=== PATIENT | female | born 1995 | race African-American/Black ===

== ENCOUNTER 2019-02-13 10:10 | Emergency (ER) | payer OTHER ==
[~2019-02-13] VITALS: Ht 165.1 cm; Wt 76.7 kg
[2019-02-13] MEDS ORDERED: LIDOCAINE VISCOUS 2% SOLN 15ML UDC SS ONE ×2 (10:45→11:30)
[2019-02-13] MEDS ORDERED: ONDANSETRON 4 MG ORAL DISINTEGRATING TAB (Q0162 PER 1MG) PO ONE (10:45)
[2019-02-13] MEDS ORDERED: ONDA4TAB6 PO (11:28)
[2019-02-13] MEDS ORDERED: LIDO1SOL8 PO (11:28)
[2019-02-13] MEDS ORDERED: IBUP-1022 PO (11:28)
[2019-02-13 11:35] VITALS: BP 123/81
== END 2019-02-13 11:55 | disposition home or self-care (01) ==
LOC: M ED 10:10
DX: J02.9 Acute pharyngitis, unspecified (principal); R11.2 Nausea with vomiting, unspecified; Z77.098 Contact with and (suspected) exposure to other hazardous, chiefly nonmedicinal, chemicals
CPT/HCPCS: 87880; 99284; Q0162

== ENCOUNTER 2019-05-03 18:29 | Emergency (ER) | payer OTHER ==
[~2019-05-03] VITALS: Ht 162.6 cm; Wt 77.3 kg
[~2019-05-03 18:29] MED LIST: IBUP-1022 PO; LIDO1SOL8 PO; ONDA4TAB6 PO
[2019-05-03] MEDS ORDERED: MACR100C43 PO (20:35)
[2019-05-03 21:07] VITALS: BP 126/86
[2019-05-03 21:25] LABS: CHLAMYDIA DNA AMPLIFICATION NEGATIVE (NEGATIVE); GC DNA AMPLIFICATION NEGATIVE (NEGATIVE)
== END 2019-05-03 21:48 | disposition home or self-care (01) ==
LOC: M ED 18:29
DX: N39.0 Urinary tract infection, site not specified (principal); Z87.440 Personal history of urinary (tract) infections; Z77.098 Contact with and (suspected) exposure to other hazardous, chiefly nonmedicinal, chemicals